=== PATIENT | female | born 1955 | race Caucasian/White ===

== ENCOUNTER 2017-07-31 16:23 | Emergency (ER) | payer OTHER ==
[~2017-07-31] VITALS: Ht 160 cm; Wt 65.8 kg
[~2017-07-31 16:23] MED LIST: AMBIEN 10 MG TA10 MG; AMBIEN 10 MG TA10 MG PO; AMITRIPTYLINE H25 M2 PO; ASTELIN30 ML NS; BACTRIM DS TAB1 EACH PO; BUSPAR30 MG PO; BUTALB-APAP-CA1 EACH PO; CARAFATE 1 GM TA1 G1 PO; CLONAZEPAM; CLONAZEPAM PO; COLACE 100 MG100 MG PO; DESYREL150 MG PO; DESYREL50 MG PO; DIPROLENE; ESGIC 50-325-41 EACH PO; FIORICET 50-301 EACH PO; FIORICET 50-321 EACH PO; FIORINAL 50-321 EACH PO; FIORINAL CAPSUL1 CA1 GT; LAMICTAL 25 MG25 M1 PO; LAMICTAL XR25 MG PO; MS CONTIN60 MG PO; NASONEX; ONDANSETRON HCL4 M2 PO; OXYCODONE HCL10 M1; PRILOSEC40 MG PO; PRISTIQ50 M1 PO; PRISTIQ50 MG PO; REMERON15 MG PO; VITAMIN D 5050000 I1 PO; ZEBUTAL 50-3251 EACH PO; ZOCOR40 MG PO; ZOFRAN 4 MG ORAL4 MG PO; ZOFRAN ODT4 MG PO; ZOFRAN4 MG PO
[2017-07-31 16:32] VITALS: BP 125/86
[2017-07-31] MEDS ORDERED: KEPPRA250 MG PO (16:37)
[2017-07-31] MEDS ORDERED: MS CONTIN 60 MG60 M1 PO (16:40)
== END 2017-07-31 17:03 | disposition home or self-care (01) ==
LOC: ER 16:23
DX: B02.29 Other postherpetic nervous system involvement (principal); G89.29 Other chronic pain; G43.909 Migraine, unspecified, not intractable, without status migrainosus; Z90.49 Acquired absence of other specified parts of digestive tract; Z90.710 Acquired absence of both cervix and uterus; Z88.1 Allergy status to other antibiotic agents; Z88.2 Allergy status to sulfonamides